=== PATIENT | male | born 1975 | race Caucasian/White ===

== ENCOUNTER 2019-10-17 09:11 | Emergency (ER) | payer OTHER ==
[~2019-10-17] VITALS: Ht 180.3 cm; Wt 71.4 kg
--- NOTE | 2019-10-17 10:00 | NUR ---
Pt to 35 from lobby
--- NOTE | 2019-10-17 10:06 | NUR ---
PT WAS AMBULATORY TO & FROM BR W/OUT INCIDENT, URINE SPECIMEN PROVIDED. TAMMI MONTENEGRO BS FOR EXAM. PT REPORTS GI ISSUES X 1 YEAR. SAW GI YESTERDAY; COLONOSCOPY SCHEDULED FOR December. C/O NAUSEA W/ BM. VOMITED LAST NOC W/OUT BM - ADMITS TO SOME ETOH AND APPETIZER INTAKE. "NATURAL AND SELF-INDUCED" VOMITING ALL NIGHT. STATES SX DO NOT IMPEDE DAILY ACTIVITIES. DENIES PAIN, BLOOD IN STOOL, RECENT ANTIBIOTIC USE, RECENT TRAVEL. UNSURE OF TEMPERATURE STATUS. INTERMITTENT DIARRHEA.
--- NOTE | 2019-10-17 10:18 | NUR ---
LAST ORAL INTAKE: 1800 LAST NIGHT
[2019-10-17] MEDS ORDERED: ONDANSETRON ODT 4 MG PO ONE (10:30)
[2019-10-17 10:44] LABS: BASOPHILS # (AUTO) 0.01 x10^3/uL (0-0.1); BASOPHILS % (AUTO) 0 % (0-1); EOSINOPHILS # (AUTO) 0.01 x10^3/uL (0-0.4); EOSINOPHILS % (AUTO) 0 % (1-7); LYMPHOCYTES # (AUTO) 0.61 x10^3/uL (1-3.4); LYMPHOCYTES % (AUTO) 6 % (22-44); MD NO; MEAN CORPUSCULAR HEMOGLOBIN 32.4 pg (27.5-34.5); MEAN CORPUSCULAR HGB CONC 33.9 g/dL (33.2-36.2); MEAN CORPUSCULAR VOLUME 95.7 fL (81-97); MEAN PLATELET VOLUME 8.9 fL (7.4-10.4); MONOCYTES # (AUTO) 0.42 x10^3/uL (0.2-0.8); MONOCYTES % (AUTO) 4 % (2-9); NEUTROPHILS # (AUTO) 9.44 x10^3/uL (1.8-6.8); NEUTROPHILS % (AUTO) 90 % (42-75); PLATELET COUNT 257 x10^3/uL (130-400); RED BLOOD COUNT 4.97 x10^6/uL (4.38-5.82); RED CELL DISTRIBUTION WIDTH 12.3 % (9.4-14.8)
--- NOTE | 2019-10-17 10:47 | NUR ---
PT SITTING ON BED, EATING GOLDFISH. ADVISED HOLDING OFF ON EATING UNTIL PO CHALLENGE HAS BEEN SUCCESSFULLY COMPLETED. 360ML WATER BOTTLE PROVIDED TO PT.
--- NOTE | 2019-10-17 10:53 | NUR ---
DENIES NAUSEA & PAIN CURRENTLY. INFORMED PT ABOUT ZOFRAN ORDER; WILL HOLD MED, FOR NOW.
[2019-10-17 10:54] LABS: ALBUMIN 4.1 g/dL (3.4-5.0); ANION GAP 9 mmol/L (5-15); CALCIUM 9.4 mg/dL (8.5-10.1); CHLORIDE 104 mmol/L (98-107)
[2019-10-17 10:56] LABS: ALANINE AMINOTRANSFERASE 24 U/L (12-78); ALKALINE PHOSPHATASE 81 U/L (45-117); BILIRUBIN,TOTAL 0.8 mg/dL (0.2-1.0); TOTAL PROTEIN 7.8 g/dL (6.4-8.2)
[2019-10-17] MEDS ORDERED: PROMETHAZINE 25 MG/ML, 1ML IM ONE (11:30)
[2019-10-17] MEDS ORDERED: PROMETHAZINE 25 MG/ML, 1ML ONE (11:42)
[2019-10-17 11:57] VITALS: BP 100/55
== END 2019-10-17 12:00 | disposition home or self-care (01) ==
LOC: ED 10:30
DX: R11.2 Nausea with vomiting, unspecified (principal); R19.7 Diarrhea, unspecified; Z90.89 Acquired absence of other organs
CPT/HCPCS: 36415; 80053; 85025; 96372; 99283; J2550

== ENCOUNTER → 2020-03-03 | Outpatient (CLI) | payer OTHER ==
[~2020-03-03] MED LIST: OMNIPAQUE 350 MG/ML, 100ML BOTTLE ONE
== END | disposition home or self-care (01) ==
LOC: RAD 16:03
PROVIDERS: ATTEND Internal Medicine Gastroenterology
DX: C78.7 Secondary malignant neoplasm of liver and intrahepatic bile duct (principal); K76.9 Liver disease, unspecified; K64.0 First degree hemorrhoids
CPT/HCPCS: 71260; 74177; Q9967

== ENCOUNTER → 2020-07-21 | Outpatient (CLI) | payer OTHER | END | disposition home or self-care (01) | LOC: ROC 07:26 | PROVIDERS: ATTEND Radiology Radiation Oncology | DX: C20 Malignant neoplasm of rectum (principal) | CPT/HCPCS: 99214; G0463 ==

== ENCOUNTER 2020-10-14 08:50 | Outpatient (CLI) | payer OTHER | END 2020-10-14 23:59 | disposition home or self-care (01) | LOC: ROC 08:50 | PROVIDERS: ATTEND Radiology Radiation Oncology | DX: Z08 Encounter for follow-up examination after completed treatment for malignant neoplasm (principal); Z85.048 Personal history of other malignant neoplasm of rectum, rectosigmoid junction, and anus; Z85.46 Personal history of malignant neoplasm of prostate | CPT/HCPCS: 99213; G0463 ==

== ENCOUNTER → 2020-11-28 | Outpatient (CLI) | payer OTHER | END | disposition home or self-care (01) | LOC: ROC 09:42 | PROVIDERS: ATTEND Radiology Radiation Oncology | DX: C20 Malignant neoplasm of rectum (principal); Z85.46 Personal history of malignant neoplasm of prostate | CPT/HCPCS: 99212; G0463 ==

== ENCOUNTER 2020-12-26 01:21 | Emergency (ER) | payer OTHER ==
[~2020-12-26] VITALS: Ht 180.3 cm; Wt 68.2 kg
--- NOTE | 2020-12-26 01:31 | NUR ---
patient recently jahaira had colorectal surgery and was doing well, but then began having a lot of nausea/vomiting
[2020-12-26] MEDS ORDERED: ONDANSETRON 2MG/ML, 2ML ONE (01:44)
[2020-12-26] MEDS ORDERED: ONDANSETRON 2MG/ML, 2ML IVPush ONE (02:00)
[2020-12-26] MEDS ORDERED: SODIUM CHLORIDE 0.9% 1,000ML IVBOLUS ONE (02:00)
[2020-12-26 02:05] LABS: BASOPHILS % (AUTO) 0 % (0-1); EOSINOPHILS % (AUTO) 0 % (1-7); LYMPHOCYTES % (AUTO) 7 % (22-44); MEAN CORPUSCULAR HEMOGLOBIN 35.8 pg (27.5-34.5); MEAN CORPUSCULAR HGB CONC 36.9 g/dL (33.2-36.2); MEAN PLATELET VOLUME 7.6 fL (7.4-10.4); MONOCYTES % (AUTO) 7 % (2-9); NEUTROPHILS % (AUTO) 85 % (42-75); PLATELET COUNT 279 x10^3/uL (130-400); RED BLOOD COUNT 4.98 x10^6/uL (4.38-5.82); RED CELL DISTRIBUTION WIDTH 11.5 % (9.4-14.8)
[2020-12-26 02:07] LABS: MD NO
[2020-12-26] MEDS ORDERED: MORPHINE SULFATE 4 MG/ML, 1ML ONE ×2 (02:09→03:08)
[2020-12-26] MEDS: MORPHINE SULFATE 4 MG/ML, 1ML IVPush PRN ×2 (02:12→03:09)
[2020-12-26 02:17] LABS: ALANINE AMINOTRANSFERASE 53 U/L (12-78); ANION GAP 10 mmol/L (5-15); CALCIUM 10.1 mg/dL (8.5-10.1); CHLORIDE 95 mmol/L (98-107); CREATININE 1.25 mg/dL (0.7-1.3)
[2020-12-26 02:19] LABS: ALKALINE PHOSPHATASE 97 U/L (45-117); BILIRUBIN,TOTAL 1.7 mg/dL (0.2-1.0); TOTAL PROTEIN 9.1 g/dL (6.4-8.2)
--- NOTE | 2020-12-26 02:25 | NUR ---
patient going to ct scan
[2020-12-26] MEDS ORDERED: OMNIPAQUE 350 MG/ML, 100ML BOTTLE ONE (02:43)
--- NOTE | 2020-12-26 03:19 | NUR ---
patient continued having pain, gave second dose morphine. feeling improved.
--- NOTE | 2020-12-26 04:15 | NUR ---
Provided water for a PO challenge.
--- NOTE | 2020-12-26 05:04 | NUR ---
TOLERATED WATER OK, NAUSEA BETTER
[2020-12-26 05:14] VITALS: BP 115/78
--- NOTE | 2020-12-26 05:15 | NUR ---
discharge instructions reviewed, shows understanding. sister here to drive home
== END 2020-12-26 05:25 | disposition home or self-care (01) ==
LOC: ED 03:10
DX: E86.0 Dehydration (principal); R11.2 Nausea with vomiting, unspecified; Z85.038 Personal history of other malignant neoplasm of large intestine; Z85.048 Personal history of other malignant neoplasm of rectum, rectosigmoid junction, and anus
CPT/HCPCS: 36415; 74177; 80053; 83605; 83690; 85025; 87040; 96374; 96375; 96376; 99285; J2270; J2405; J7030; Q9967

== ENCOUNTER → 2021-01-06 | Outpatient (CLI) | payer OTHER | END | disposition home or self-care (01) | LOC: ROC 09:41 | PROVIDERS: ATTEND Radiology Radiation Oncology | DX: Z08 Encounter for follow-up examination after completed treatment for malignant neoplasm (principal); Z85.048 Personal history of other malignant neoplasm of rectum, rectosigmoid junction, and anus; E86.0 Dehydration; E87.1 Hypo-osmolality and hyponatremia; E87.6 Hypokalemia | CPT/HCPCS: 99212; G0463 ==

== ENCOUNTER → 2021-03-20 | Outpatient (CLI) | payer OTHER | END | disposition home or self-care (01) | LOC: ROC 01-23 09:43 | PROVIDERS: ATTEND Radiology Radiation Oncology | DX: Z08 Encounter for follow-up examination after completed treatment for malignant neoplasm (principal); Z85.048 Personal history of other malignant neoplasm of rectum, rectosigmoid junction, and anus | CPT/HCPCS: 99212; G0463 ==